=== PATIENT | female | born 1970 | race Caucasian/White ===

== ENCOUNTER → 2017-11-12 | Outpatient (CLI) | payer OTHER ==
--- NOTE | 2017-11-12 15:22 | MAMMOGRAPHY REPORT ---
BILATERAL FIRST EVER DIGITAL SCREENING MAMMOGRAM TOMOSYNTHESIS WITH CAD: 11/12/2017 CLINICAL HISTORY: Routine screening. Baseline exam. TECHNIQUE: Breast tomosynthesis in addition to standard 2D mammography was performed. Current study was also evaluated with a Computer Aided Detection (CAD) system. COMPARISON: No prior exams were available for comparison. BREAST COMPOSITION: The tissue of both breasts is heterogeneously dense, which may obscure small mas ses. FINDINGS: No suspicious masses, calcifications, or areas of architectural distortion are noted in ei ther breast. IMPRESSION: ACR BI-RADS CATEGORY 1: NEGATIVE There is no mammographic evidence of malignancy. A 1 year screening mammogram is recommended. The pa tient will receive written notification of the results. Approximately 10% of breast cancers are not detected with mammography. A negative mammographic report should not delay biopsy if a clinically suggestive mass is present. Lisset Stephen M.D. ah/:11/12/2017 14:54:53 Software Applications Specialist: Jane HOUSE(Steven)(M), [facility] letter sent: Normal 1/2 BI-RADS Code: ACR BI-RADS Category 1: Negative
== END | disposition home or self-care (01) ==
LOC: C.MAMM 09:51
PROVIDERS: ATTEND Obstetrics & Gynecology
DX: Z12.31 Encounter for screening mammogram for malignant neoplasm of breast (principal)

== ENCOUNTER → 2017-11-28 | Outpatient (CLI) | payer OTHER ==
[2017-11-28 10:01] LABS: BASO % 0.3 %; BASO ABS # 0.02 K/uL (0-0.2); EOS % 0.4 %; EOS ABS # 0.03 K/uL (0-0.5); HEMATOCRIT 41.1 % (37-47); HEMOGLOBIN 14.5 g/dL (12.0-16.0); IG# 0.01 K/uL (0.00-0.02); LYMPH % 23.8 %; LYMPH ABS # 1.84 K/uL (1.2-3.4); MEAN CELL VOLUME 87.4 fL (80-100); MEAN CORPUSCULAR HEMOGLOBIN 30.9 pg (25-34); MEAN CORPUSCULAR HGB CONC 35.3 g/dl (32-36); MONO % 4.4 %; MONO ABS # 0.34 K/uL (0.11-0.59); NEUT ABS # 5.48 K/uL (1.4-6.5); PLATELET COUNT 196 K/uL (130-400); RED CELL DISTRIBUTION WIDTH CV 12.4 % (11.5-14.5); RED CELL DISTRIBUTION WIDTH SD 40.1 fL (36.4-46.3); WHITE BLOOD COUNT 7.72 K/uL (4.8-10.8)
[2017-11-28 10:33] LABS: ALT/SGPT 19 U/L (12-78); BLOOD UREA NITROGEN 11 mg/dl (7-18); CARBON DIOXIDE 27 mmol/L (21-32); CREATININE 0.64 mg/dl (0.60-1.20); GLUCOSE 94 mg/dl (70-99); POTASSIUM 3.9 mmol/L (3.5-5.1); SODIUM 139 mmol/L (136-145)
[2017-11-28 10:44] LABS: ALKALINE PHOSPHATASE 45 U/L (45-117); AST/SGOT 12 U/L (15-37); TOTAL PROTEIN 7.4 gm/dl (6.4-8.2)
[2017-11-28 11:19] LABS: HEMOGLOBIN A1C 5.3 % (4.5-5.6)
== END | disposition home or self-care (01) ==
LOC: C.LAB1850 09:16
PROVIDERS: ATTEND Internal Medicine
DX: Z00.00 Encounter for general adult medical examination without abnormal findings (principal); Z86.32 Personal history of gestational diabetes; R42 Dizziness and giddiness; E16.2 Hypoglycemia, unspecified; E28.319 Asymptomatic premature menopause; R51 Headache; F41.9 Anxiety disorder, unspecified

== ENCOUNTER 2021-04-05 05:00 | Inpatient (IN) ==
--- NOTE | 2021-03-27 16:06 | Anesthesiology Consultation ---
Date of Service March 27, 2021 Assessment & Plan (1) Encounter for pre-operative examination: - COVID screening: Per assessment on 03/27: Travel screen negative, no known COVID-19 positive contacts or current COVID-19 related symptoms. Surgeon arranging preop COVID testing. Awaiting results. - S/P EGD/colonoscopy (for anemia evaluation): 03/15/21: MAC at [facility] > EGD with small hiatal hernia/gastris. Colonoscopy with Altered vascular, erythematous, inflamed and ulcerated mucosa in the terminal ileum. Stricture in the ascending colon. > biopsies confirmed well differentiated adenocarcinoma (reason for upcoming surgery). Chart Review Chart Review: Acceptable Risk for Surgery and Patient NOT seen in Pre Admission Testing History Surgery Operation Date: 04/05/21 11:15 Proposed Procedures p Laparoscopic Right Hemicolectomy - Joni Polo, Height/Weight Height: 5 ft 8.5 in Weight: 63.049 kg Allergies Allergy/AdvReac Type Severity Reaction Status Date / Time cefuroxime [From Ceftin] Allergy Intermediate Abdominal Verified 03/27/21 15:51 pain, rash, swelling latex Allergy Intermediate Blisters, Verified 03/27/21 15:51 sore, swollen nickel Allergy Intermediate Itching, Verified 03/27/21 15:51 chest congestion corn Allergy Mild Bloating, Verified 03/27/21 15:51 red streaks on skin, "break out", itchiness lactase [From Dairy Aid] Allergy Mild Dairy- Verified 03/27/21 15:51 bloating, red streaks on skin, "break out", itchiness wheat Allergy Mild Bloating, Verified 03/27/21 15:51 red streaks on skin, "break out", itchiness Echinacea AdvReac Mild Fast heart Verified 03/27/21 15:51 rate sulfamethoxazole AdvReac Mild Abdominal Verified 03/27/21 12:15 [From Bactrim] Pain trimethoprim [From Bactrim] AdvReac Mild Abdominal Verified 03/27/21 12:15 Pain REFINED SUGARS Allergy Intermediate Bloating, Uncoded 03/27/21 15:51 red streaks on skin, "break out", itchiness WINE Allergy Mild Itching Uncoded 03/27/21 15:51 Medications Home Medications Medication Instructions Recorded Confirmed Last Taken cetirizine [Zyrtec] 10 mg PO HS 06/25/18 03/27/21 03/13/21 progesterone micronized 100 mg 50 mg PO QAM cap 11/20/20 03/27/21 03/14/21 06:00 capsule liothyronine 5 mcg tablet 5 mcg PO UD 12/08/20 03/27/21 03/13/21 lactobacillus combination no.8 3 3,000 mmu cells PO QAM 01/03/21 03/27/21 03/13/21 billion cell capsule s-adenosylmethionine 200 mg tablet 200 mg PO QAM tab 01/03/21 03/27/21 03/13/21 inositol 325 mg tablet 325 mg PO QAM tab 01/30/21 03/27/21 03/13/21 Various Nutritional Supplement 1 dose PO UD 02/23/21 03/27/21 03/13/21 Estrogen 1 dose VAGINAL HS 03/27/21 03/27/21 Unknown Progesterone 50 mg PO QAM 03/27/21 03/27/21 Unknown Teststerone 1 dose VAGINAL HS 03/27/21 03/27/21 Unknown lorazepam 0.5 mg tablet 0.5 mg PO Q8H PRN #30 tab 03/27/21 03/27/21 Unknown Past Medical History Medical History Acid reflux Anemia current iron infusions Colon cancer Degenerative disc disease Hypothyroidism L4-L5 disc bulge 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 Lumbar radiculopathy Ocular migraine Situational anxiety TMJ (temporomandibular joint disorder) + locking and popping Past Family History Family History Father Diabetes Uncle Cancer Grandmother Diabetes Aunt Diabetes Uncle Diabetes Grandfather (Maternal) Prostate cancer Father Family history of diabetes mellitus Grandfather (Maternal) Family history of diabetes mellitus Other Hypertension Denies family history of Myocardial infarction Breast cancer Colorectal cancer Past Surgical History Surgical History Family history of reaction to anesthesia Father: "slow to wake" H/O colonoscopy (03/15/21) History of anesthesia reaction Patient had emergent D&C, total abdominal hysterectomy 08/2013 2/2 hemorrhage after /delivery. Per patient, "slow to wake" and woke up intubated post-operatively. Per [facility] anesthesia records, Grade 1 view with cricoid pressure, MAC 3, ETT 6.0 inserted tight fit at level of the cords > discharged from PACU to ICU per post-op anesthesia note. Anesthesia records to be scanned into [employer]. History of section x1 History of conization of cervix History of esophagogastroduodenoscopy (EGD) History of hysterectomy History of in vitro fertilization Used donor History of root canal procedure Nausea and vomiting after administration of anesthetic agent [place] teeth removed Social History Smoking Status: Former smoker tobacco type: cigarettes Do You Dip or Chew Tobacco: No Smoking End Date: QUIT AT AGE 41 Hx Alcohol Use: Yes Alcohol type: other alcohol intake frequency: a few times a month Alcohol Intake Frequency Comment: MACO Hx Substance Use: No substance use type: does not use Lab Results Anesthesia Preop Results Results Anesthesia Widget: WBC 4.43 K/uL (4.8-10.8) L 03/23/21 Hgb 11.0 g/dL (12.0-16.0) L 03/23/21 Hct 34.8 % (37-47) L 03/23/21 Plt 223 K/uL (130-400) 03/23/21 Na 138 mmol/L (136-145) 03/23/21 K 3.9 mmol/L (3.5-5.1) 03/23/21 Cl 106 mmol/L (98-107) 03/23/21 CO2 26 mmol/L (21-32) 03/23/21 BUN 11 mg/dl (7-18) 03/23/21 Creat 0.65 mg/dl (0.6-1.2) 03/23/21 Glucose Level 96 mg/dl (70-99) 03/23/21 Testing Electrocardiogram Date: 03/27/21 Findings: + SB @ (50) Other Testing Chest CT (03/21/21): No pneumothorax, pleural effusion, airspace consolidation or overt pulmonary edema. Small tracheocele of the right upper tracheoesophageal recess. Central airways are patent. There are no suspicious pulmonary nodules or masses identified. Mild bleb formation of the lung apices, right greater than left. No acute intrathoracic abnormality. No adenopathy or evidence of thoracic metastatic disease.
[2021-04-05] MEDS ORDERED: metroNIDAZOLE 500 MG/100 ML BAG IV SCH (06:00)
[2021-04-05] MEDS ORDERED: CIPROFLOXACIN / D5W 400 MG/200 ML BAG IV SCH (06:00)
[2021-04-05] MEDS ORDERED: LACTATED RINGER'S 1,000 ML IV SCH (06:00)
[2021-04-05] MEDS ORDERED: BUPIVACAINE/EPINEPHRINE 0.5% MPF 1:200,000 30 ML VIAL ONE (06:35)
[2021-04-05] MEDS ORDERED: MIDAZOLAM HCL 1 MG/ML 2ML VIAL ONE (06:44)
[2021-04-05] MEDS ORDERED: DEXAMETHASONE SOD INJ 4 MG/ML VIAL ONE (06:44)
[2021-04-05] MEDS ORDERED: GLYCOPYRROLATE 0.2 MG/ML VIAL ONE (06:44)
[2021-04-05] MEDS ORDERED: NEOSTIGMINE METHYLSULFATE 1 MG/ML 10ML VIAL ONE (06:44)
[2021-04-05] MEDS ORDERED: PROPOFOL IV EMULSION 10 MG/ML 20 ML VIAL IV ONE (06:44)
[2021-04-05] MEDS ORDERED: fentaNYL citrate 100 MCG/2 ML VIAL ONE ×4 (06:44→10:27)
[2021-04-05] MEDS ORDERED: LIDOCAINE 2% 2 ML VIAL/AMP(20MG/ML) INFIL ONE (06:44)
[2021-04-05] MEDS ORDERED: ONDANSETRON INJ 2 MG/ML 2 ML VIAL ONE (06:44)
[2021-04-05] MEDS ORDERED: ONDANSETRON INJ 2 MG/ML 2 ML VIAL IV PRN (06:51)
[2021-04-05] MEDS ORDERED: ATROPINE SULFATE 0.1 MG/ML 10ML SYR IV PRN (06:51)
[2021-04-05] MEDS ORDERED: HYDROmorphone INJ 1 MG/ML SYRINGE IV PRN (06:51)
[2021-04-05] MEDS ORDERED: ePHEDrine sulfate 50 MG/ML AMP IV PRN (06:51)
--- NOTE | 2021-04-05 06:58 | History & Physical Bridge Note ---
Date of Service April 05, 2021 History & Physical Bridge Note I have examined the patient, reviewed the History & Physical and in the interval since the performance of the History & Physical I have noted the following changes of clinical significance: no changes noted
[2021-04-05] MEDS ORDERED: KETOROLAC 30 MG/ML VIAL ONE (07:29)
[2021-04-05] MEDS ORDERED: ALBUMIN HUMAN 5% 12.5 GM/250 ML VIAL IV ONE (09:11)
[2021-04-05] MEDS ORDERED: ACETAMINOPHEN 1000 MG/100 ML IV IV ONE (09:16)
[2021-04-05] MEDS ORDERED: SUGAMMADEX SODIUM 200 MG/2 ML VIAL IV ONE (09:17)
[2021-04-05] MEDS: fentaNYL citrate 100 MCG/2 ML VIAL IV PRN ×2 (10:50→11:00)
[2021-04-05] MEDS ORDERED: LORazepam 0.5 MG TAB PO PRN (12:10)
[2021-04-05] MEDS ORDERED: FLUCONAZOLE 50 MG TAB PO SCH (12:10)
[2021-04-05] MEDS ORDERED: NALOXONE HCL 0.4 MG/1 ML VIAL/CARP IV PRN (12:10)
[2021-04-05] MEDS: LACTATED RINGER'S 1,000 ML IV SCH (12:17)
--- NOTE | 2021-04-05 12:23 | Anesthesiology Progress Note ---
Date of Service April 05, 2021 Anesthesia Post Procedure Vital Signs Vital Signs: Temp Pulse Pulse Resp BP BP Pulse Ox 04/05/21 11:55 97.3 F L 42 L 17 103/52 L 100 04/05/21 11:45 97.3 F L 46 L 17 98/53 L 100 04/05/21 11:35 97.3 F L 42 L 12 94/47 L 100 04/05/21 11:25 47 L 15 98/51 L 100 04/05/21 11:15 52 L 12 102/48 L 100 04/05/21 11:05 52 L 16 94/52 L 100 04/05/21 10:55 48 L 15 99/54 L 100 04/05/21 10:45 48 L 14 91/48 L 100 04/05/21 10:35 45 L 12 90/51 L 100 04/05/21 10:25 50 L 8 L 91/41 L 100 04/05/21 10:17 97.2 F L 59 L 12 92/47 L 100 04/05/21 05:33 97.9 F 62 20 125/55 L 99 Pain Intensity Abdomen: Pain Intensity: 9 Transfer of Care Handoff Completed per policy Notes Mental Status: alert / awake / arousable and participated in evaluation Patient Amnestic to Procedure: Yes Nausea / Vomiting: adequately controlled Pain: adequately controlled Airway Patency, RR, SpO2: stable & adequate BP & HR: stable & adequate Hydration State: stable & adequate Anesthetic Complications: no major complications apparent and Pt Satisfied with anesthetic care
[2021-04-05] MEDS: HYDROmorphone PCA 30 MG/30 ML IV PRN (13:31)
[2021-04-05] MEDS: SODIUM CHLORIDE 0.9% 1000ML 1,000 ML IV SCH (13:31)
[2021-04-05] MEDS: ACETAMINOPHEN 1,000 MG/100 ML VIAL IV SCH ×2 (13:56→22:27)
[2021-04-05] MEDS: metroNIDAZOLE 500 MG/100 ML BAG IV SCH ×2 (15:06→22:50)
[2021-04-05] MEDS: ONDANSETRON INJ 2 MG/ML 2 ML VIAL IV PRN (15:06)
[2021-04-05] MEDS: PROMETHAZINE HCL 25 MG in SODIUM CHLORIDE 0.9% 50 ML IV PRN (17:08)
[2021-04-05] MEDS: [UNRECOGNIZED DRUG - REMARK] SCH (17:12)
[2021-04-05] MEDS: CIPROFLOXACIN / D5W 400 MG/200 ML BAG IV SCH (17:30)
[2021-04-05] MEDS: CETIRIZINE HCL 10 MG TABLET PO SCH (22:28)
[2021-04-06] MEDS: [UNRECOGNIZED DRUG - REMARK] SCH ×4 (00:31→23:02)
[2021-04-06] MEDS: CIPROFLOXACIN / D5W 400 MG/200 ML BAG IV SCH (03:03)
[2021-04-06] MEDS: LACTATED RINGER'S 1,000 ML IV SCH ×5 (03:48→23:02)
[2021-04-06] MEDS: ACETAMINOPHEN 1,000 MG/100 ML VIAL IV SCH ×3 (05:17→21:20)
[2021-04-06] MEDS: metroNIDAZOLE 500 MG/100 ML BAG IV SCH (05:39)
[2021-04-06 07:32] LABS: Eosinophils # (auto) 0.01 K/uL (0-0.5); Eosinophils % (auto) 0.2 %; Hematocrit (blood only) 27.8 % (37-47); Hemoglobin 8.6 g/dL (12.0-16.0); Immature Granulocytes # (auto) 0.01 K/uL (0.00-0.02); Immature Granulocytes % (auto) 0.2 %; Lymphocytes # (auto) 1.17 K/uL (1.2-3.4); Lymphocytes % (auto) 18.9 %; Mean Corpuscular Hgb Conc 30.9 g/dL (32-36); Mean Corpuscular Volume 80.8 fL (80-100); Mean Platelet Volume 11.5 fL (7.4-10.4); Monocytes # (auto) 0.41 K/uL (0.11-0.59); Monocytes % (auto) 6.6 %; Neutrophils # (auto) 4.59 K/uL (1.4-6.5); Neutrophils % (auto) 74.1 %; Platelet Count 199 K/uL (130-400); RDW Coefficient of Variation 17.3 % (11.5-14.5); RDW Standard Deviation 50.7 fL (36.4-46.3); Red Blood Count 3.44 M/uL (4.2-5.4); White Blood Count 6.19 K/uL (4.8-10.8)
[2021-04-06 07:55] LABS: BUN Creatinine Ratio 12.6 (10-20); Calcium 8.2 mg/dl (8.5-10.1); Creatinine Clr Calc Pharmacy 139.4 ml/min; Est GFR (African American) 134.4 ml/min; Potassium 3.6 mmol/L (3.5-5.1)
--- NOTE | 2021-04-06 08:41 | Surgery Progress Note ---
Date of Service April 06, 2021 Assessment & Plan (1) Colon cancer: Postoperative day #1 Doing well/as expected We'll start clear liquids but I would like to go very slow with her over the weekend. DC Quiñonez catheter. Keep ASAF drain until bowel function. [facility] surgeons covering for the weekend if any questions or concerns Admission and Anticipated Discharge Date Admission Date: April 05, 2021 Subjective Patient seen. Feeling better today. Had a rough evening last evening with pain began feeling better this morning. Denying nausea. Physical Exam Physical Exam: Alert. No acute distress Abdomen with expected incisional tenderness. ASAF is serosanguineous. Results & Data ([facility]) Vital Signs (Past 12 Hours) Vital Signs Temp Pulse Pulse Resp BP BP Pulse Ox 04/06/21 07:32 36.6 C 53 L 14 100/59 L 97 04/06/21 03:21 36.8 C 54 L 14 102/60 98 04/06/21 02:14 52 L 14 97/59 L 97 04/05/21 23:55 57 L 14 91/52 L 97 04/05/21 22:31 36.7 C 53 L 15 91/48 L 95 PG Care Time/CCT Total # of Minutes Spent Total Time Spent with Patient: Total time spent is greater than 50% in coordination of care (as documented) at patient's floor/unit and/or counseling patient: Coding Level of Care Code None Diagnoses Colon cancer C18.9
[2021-04-06] MEDS ORDERED: PROGESTERONE PO SCH (09:00)
[2021-04-06] MEDS: ENOXAPARIN INJ 40 MG/0.4 ML SYR SQ SCH (11:03)
[2021-04-06] MEDS: SODIUM CHLORIDE 0.9% 1000ML 1,000 ML IV SCH ×2 (12:59→13:01)
[2021-04-06] MEDS: HYDROmorphone PCA 30 MG/30 ML IV PRN (19:22)
[2021-04-06] MEDS: CETIRIZINE HCL 10 MG TABLET PO SCH (21:20)
[2021-04-07] MEDS: ACETAMINOPHEN 1,000 MG/100 ML VIAL IV SCH ×3 (05:39→21:20)
[2021-04-07] MEDS: LACTATED RINGER'S 1,000 ML IV SCH ×3 (05:41→21:20)
[2021-04-07 06:48] LABS: Basophils # (auto) 0.02 K/uL (0-0.2); Basophils % (auto) 0.4 %; Eosinophils # (auto) 0.05 K/uL (0-0.5); Eosinophils % (auto) 0.9 %; Hematocrit (blood only) 31.2 % (37-47); Hemoglobin 9.8 g/dL (12.0-16.0); Immature Granulocytes # (auto) 0.01 K/uL (0.00-0.02); Immature Granulocytes % (auto) 0.2 %; Lymphocytes # (auto) 1.77 K/uL (1.2-3.4); Mean Corpuscular Hemoglobin 25.3 pg (25-34); Mean Corpuscular Hgb Conc 31.4 g/dL (32-36); Mean Corpuscular Volume 80.6 fL (80-100); Mean Platelet Volume 11.3 fL (7.4-10.4); Monocytes # (auto) 0.27 K/uL (0.11-0.59); Monocytes % (auto) 4.7 %; Neutrophils # (auto) 3.59 K/uL (1.4-6.5); Neutrophils % (auto) 62.8 %; Platelet Count 214 K/uL (130-400); RDW Coefficient of Variation 17.7 % (11.5-14.5); RDW Standard Deviation 51.1 fL (36.4-46.3); Red Blood Count 3.87 M/uL (4.2-5.4); White Blood Count 5.71 K/uL (4.8-10.8)
[2021-04-07 07:19] LABS: BUN Creatinine Ratio 8.2 (10-20); Calcium 8.3 mg/dl (8.5-10.1); Creatinine Clr Calc Pharmacy 139.4 ml/min; Est GFR (African American) 134.4 ml/min; Potassium 3.7 mmol/L (3.5-5.1)
[2021-04-07] MEDS: [UNRECOGNIZED DRUG - REMARK] SCH ×3 (07:38→23:57)
[2021-04-07] MEDS: ONDANSETRON INJ 2 MG/ML 2 ML VIAL IV PRN ×2 (09:13→20:33)
[2021-04-07] MEDS: ENOXAPARIN INJ 40 MG/0.4 ML SYR SQ SCH (09:13)
--- NOTE | 2021-04-07 12:16 | Surgery Progress Note ---
Date of Service F/U S/P Laparoscopic Right Hemicolectomy, Extensive Enterolysis, POD 2, pt is doing fine, passed some gas, tolerated clear diet, no fever,ASAF, 70ml/8 hours, blood color, pt denies abdominal pain, April 07, 2021 Assessment & Plan Admission and Anticipated Discharge Date Admission Date: April 05, 2021 04/07/2021 12:19PM F/U S/P Laparoscopic Right Hemicolectomy, Extensive Enterolysis, POD 2 doing fine, tolerated clear diet, keep the clear diet today, OOB will F/U Subjective Patient seen. Feeling better today. Had a rough evening last evening with pain began feeling better this morning. Denying nausea. Physical Exam Constitutional: WD/WN, vitals as above well developed and well nourished Eyes: PERRL, conjunctivae normal, anicteric sclerae Neck: trachea midline, no thyromegaly Respiratory: normal respiratory effort, lungs clear to auscultation Cardiovascular: RRR, no murmur, no edema Gastrointestinal (Abdomen): normal bowel sounds, soft, nontender, no hepatosplenomegaly Percussion/Palpation: abdomen soft no distend, the incisions intact, ASAF intact, BS + Musculoskeletal: no cyanosis or clubbing, extremities motor strength 5/5 Neurologic: awake Psychiatric: Orientation: alert and oriented x 3 Results & Data ([facility]) Vital Signs (Past 12 Hours) Vital Signs Temp Pulse Resp BP BP Pulse Ox 04/07/21 11:30 36.9 C 60 18 115/71 97 04/07/21 10:59 36.5 C 62 18 112/62 98 04/07/21 07:23 36.7 C 48 L 18 100/63 98 04/07/21 02:40 36.8 C 54 L 14 106/63 96 Laboratory Results Abnormal lab results 04/07/21 04/07/21 Range/Units 06:31 06:31 RBC 3.87 L (4.2-5.4) M/uL Hgb 9.8 L (12.0-16.0) g/dL Hct 31.2 L (37-47) % MCHC 31.4 L (32-36) g/dL RDW Std Deviation 51.1 H (36.4-46.3) fL RDW Coeff of Lobo 17.7 H (11.5-14.5) % MPV 11.3 H (7.4-10.4) fL Chloride 109 H (98-107) mmol/L Anion Gap 2.0 L (3-11) BUN 4 L (7-18) mg/dl Creatinine 0.48 L (0.6-1.2) mg/dl BUN/Creatinine Ratio 8.2 L (10-20) Calcium 8.3 L (8.5-10.1) mg/dl
[2021-04-07] MEDS: SODIUM CHLORIDE 0.9% 1000ML 1,000 ML IV SCH (12:55)
--- NOTE | 2021-04-07 16:41 | Surgery Progress Note ---
Date of Service re-check pt, pt passed 2 times BMthis afternoon, pt denies abdominal pain, some nausea, no vomting, ASAF 360ml/10 hours blod color, not whole blood, pt denies di zziness April 07, 2021 Assessment & Plan Admission and Anticipated Discharge Date Admission Date: April 05, 2021 04/07/2021 4:40PM re-check pt, pt passed BM, no abdominal pain, ASAF 360ml /10 hours, blood color, stop lovenox, SCD repeta CBC in morning, will F/U Subjective Patient seen. Feeling better today. Had a rough evening last evening with pain began feeling better this morning. Denying nausea. Physical Exam Constitutional: WD/WN, vitals as above well developed and well nourished Eyes: PERRL, conjunctivae normal, anicteric sclerae Neck: trachea midline, no thyromegaly Respiratory: normal respiratory effort, lungs clear to auscultation Cardiovascular: RRR, no murmur, no edema Gastrointestinal (Abdomen): normal bowel sounds, soft, nontender, no hepatosplenomegaly Percussion/Palpation: abdomen soft no distend, BS +, ASAF intact, incisions intact, no redness, Musculoskeletal: no cyanosis or clubbing, extremities motor strength 5/5 Neurologic: awake Psychiatric: Orientation: alert and oriented x 3 Results & Data ([facility]) Vital Signs (Past 12 Hours) Vital Signs Temp Pulse Resp BP Pulse Ox 04/07/21 15:34 36.7 C 55 L 17 109/71 99 04/07/21 11:30 36.9 C 60 18 115/71 97 04/07/21 10:59 36.5 C 62 18 112/62 98 04/07/21 07:23 36.7 C 48 L 18 100/63 98
[2021-04-07] MEDS: CETIRIZINE HCL 10 MG TABLET PO SCH (21:20)
[2021-04-08] MEDS: ACETAMINOPHEN 1,000 MG/100 ML VIAL IV SCH (05:45)
[2021-04-08] MEDS: LACTATED RINGER'S 1,000 ML IV SCH ×3 (05:45→21:47)
[2021-04-08 05:47] LABS: Basophils # (auto) 0.01 K/uL (0-0.2); Basophils % (auto) 0.2 %; Eosinophils # (auto) 0.06 K/uL (0-0.5); Eosinophils % (auto) 1.2 %; Hemoglobin 9.2 g/dL (12.0-16.0); Immature Granulocytes # (auto) 0.01 K/uL (0.00-0.02); Immature Granulocytes % (auto) 0.2 %; Lymphocytes % (auto) 22.8 %; Mean Corpuscular Hemoglobin 25.6 pg (25-34); Mean Corpuscular Hgb Conc 30.7 g/dL (32-36); Mean Corpuscular Volume 83.3 fL (80-100); Monocytes # (auto) 0.22 K/uL (0.11-0.59); Monocytes % (auto) 4.6 %; Neutrophils # (auto) 3.42 K/uL (1.4-6.5); Platelet Count 178 K/uL (130-400); RDW Coefficient of Variation 17.4 % (11.5-14.5); RDW Standard Deviation 52.9 fL (36.4-46.3); White Blood Count 4.82 K/uL (4.8-10.8)
[2021-04-08 06:19] LABS: BUN Creatinine Ratio 14.2 (10-20); Creatinine Clr Calc Pharmacy 171.5 ml/min; Est GFR (African American) 143.9 ml/min; Est GFR (Non-African American) 124.2 ml/min; Potassium 3.8 mmol/L (3.5-5.1)
[2021-04-08] MEDS ORDERED: GLUCAGON FOR INJ 1 MG VIAL IM PRN (06:30)
[2021-04-08] MEDS ORDERED: GLUCOSE 10 TABS/TUBE PO PRN (06:30)
[2021-04-08] MEDS ORDERED: DEXTROSE 50% 50 ML SYRINGE IV PRN (06:30)
[2021-04-08] MEDS ORDERED: GLUCOSE 40% GEL 15 GM TUBE PO PRN (06:30)
[2021-04-08] MEDS: CARBOHYDRATES FOR HYPOGLYCEMIA PO PRN ×2 (06:32→06:38)
[2021-04-08] MEDS: [UNRECOGNIZED DRUG - REMARK] SCH ×3 (07:13→23:34)
[2021-04-08] MEDS: ONDANSETRON INJ 2 MG/ML 2 ML VIAL IV PRN ×3 (11:46→20:02)
[2021-04-08] MEDS: SODIUM CHLORIDE 0.9% 1000ML 1,000 ML IV SCH (12:44)
--- NOTE | 2021-04-08 12:47 | Surgery Progress Note ---
Date of Service doing better, passe BM, tolerated diet, ASAF 350, less bloody, no abdominal pain, H/H stable 9.April 08, 2021 Assessment & Plan Admission and Anticipated Discharge Date Admission Date: April 05, 2021 04/08/2021 12:49PM F/U S/P Laparoscopic Right Hemicolectomy, Extensive Enterolysis, POD 3 doing fine, tolerated clear diet, advance diet, OOB will F/U Subjective Patient seen. Feeling better today. Had a rough evening last evening with pain began feeling better this morning. Denying nausea. Physical Exam Constitutional: WD/WN, vitals as above well developed and well nourished Eyes: PERRL, conjunctivae normal, anicteric sclerae Neck: trachea midline, no thyromegaly Respiratory: normal respiratory effort, lungs clear to auscultation Cardiovascular: RRR, no murmur, no edema Gastrointestinal (Abdomen): normal bowel sounds, soft, nontender, no hepatosplenomegaly Percussion/Palpation: abdomen soft all incisions intact, no redness, Musculoskeletal: no cyanosis or clubbing, extremities motor strength 5/5 Neurologic: awake Psychiatric: Orientation: alert and oriented x 3 Results & Data ([facility]) Vital Signs (Past 12 Hours) Vital Signs Temp Pulse Resp BP BP Pulse Ox 04/08/21 07:30 36.5 C 61 18 107/62 95 04/08/21 03:47 36.7 C 52 L 14 100/64 97 Laboratory Results Abnormal lab results 04/08/21 04/08/21 04/08/21 Range/Units 05:26 05:26 06:22 RBC 3.60 L (4.2-5.4) M/uL Hgb 9.2 L (12.0-16.0) g/dL Hct 30.0 L (37-47) % MCHC 30.7 L (32-36) g/dL RDW Std Deviation 52.9 H (36.4-46.3) fL RDW Coeff of Lobo 17.4 H (11.5-14.5) % MPV 11.0 H (7.4-10.4) fL Lymph # (Auto) 1.10 L (1.2-3.4) K/uL Chloride 109 H (98-107) mmol/L BUN 5 L (7-18) mg/dl Creatinine 0.39 L (0.6-1.2) mg/dl Glucose 53 L* (70-99) mg/dl POC Glucose 55 L* (70-99) mg/dl Calcium 8.0 L (8.5-10.1) mg/dl 04/08/21 Range/Units 06:37 RBC (4.2-5.4) M/uL Hgb (12.0-16.0) g/dL Hct (37-47) % MCHC (32-36) g/dL RDW Std Deviation (36.4-46.3) fL RDW Coeff of Lobo (11.5-14.5) % MPV (7.4-10.4) fL Lymph # (Auto) (1.2-3.4) K/uL Chloride (98-107) mmol/L BUN (7-18) mg/dl Creatinine (0.6-1.2) mg/dl Glucose (70-99) mg/dl POC Glucose 66 L* (70-99) mg/dl Calcium (8.5-10.1) mg/dl
[2021-04-08] MEDS: PROMETHAZINE HCL 25 MG in SODIUM CHLORIDE 0.9% 50 ML IV PRN ×2 (13:14→21:54)
[2021-04-08] MEDS ORDERED: METOCLOPRAMIDE HCL 10 MG TABLET PO PRN (14:59)
[2021-04-08] MEDS: CETIRIZINE HCL 10 MG TABLET PO SCH (20:02)
[2021-04-09] MEDS: ONDANSETRON INJ 2 MG/ML 2 ML VIAL IV PRN ×2 (00:04→17:01)
[2021-04-09] MEDS: PROMETHAZINE HCL 25 MG in SODIUM CHLORIDE 0.9% 50 ML IV PRN (02:41)
[2021-04-09] MEDS: LACTATED RINGER'S 1,000 ML IV SCH (06:13)
[2021-04-09 07:57] LABS: Basophils # (auto) 0.01 K/uL (0-0.2); Basophils % (auto) 0.2 %; Eosinophils # (auto) 0.03 K/uL (0-0.5); Eosinophils % (auto) 0.5 %; Hematocrit (blood only) 32.9 % (37-47); Hemoglobin 10.4 g/dL (12.0-16.0); Lymphocytes # (auto) 1.26 K/uL (1.2-3.4); Lymphocytes % (auto) 22.2 %; Mean Corpuscular Hemoglobin 25.2 pg (25-34); Mean Corpuscular Hgb Conc 31.6 g/dL (32-36); Mean Corpuscular Volume 79.9 fL (80-100); Monocytes # (auto) 0.31 K/uL (0.11-0.59); Monocytes % (auto) 5.5 %; Neutrophils # (auto) 4.07 K/uL (1.4-6.5); Neutrophils % (auto) 71.6 %; Platelet Count 215 K/uL (130-400); RDW Coefficient of Variation 17.6 % (11.5-14.5); RDW Standard Deviation 51.2 fL (36.4-46.3); Red Blood Count 4.12 M/uL (4.2-5.4); White Blood Count 5.68 K/uL (4.8-10.8)
[2021-04-09 08:27] LABS: BUN Creatinine Ratio 7.2 (10-20); Calcium 8.4 mg/dl (8.5-10.1); Creatinine Clr Calc Pharmacy 191.2 ml/min; Est GFR (African American) 149.2 ml/min; Est GFR (Non-African American) 128.7 ml/min
[2021-04-09] MEDS ORDERED: ACETAMINOPHEN 325 MG TAB PO PRN (11:47)
[2021-04-09] MEDS ORDERED: oxyCODONE HCL IR 5 MG TAB (IMMEDIATE RELEASE) PO PRN (11:47)
--- NOTE | 2021-04-09 11:53 | Surgery Progress Note ---
Date of Service April 09, 2021 Assessment & Plan (1) Colon cancer: doing well. will re-institue diet...start with full liquids if tolerates diet and no more nausea will try reg diet tomorrow with potential for d/c tomorrow afternoon. path pending. Admission and Anticipated Discharge Date Admission Date: April 05, 2021 Subjective pt seen. doing well today. had nausea/emesis yesterday but feels better today. minimal pain. +multiple bm's. Physical Exam Physical Exam: alert. nad abd: soft. ASAF with serosanguinous output. wounds all look good . perhaps mild distension but she states essentially back to baseline. Results & Data ([facility]) Vital Signs (Past 12 Hours) Vital Signs Temp Pulse Pulse Resp BP BP Pulse Ox 04/09/21 11:27 36.6 C 62 14 108/70 100 04/09/21 07:53 36.6 C 65 16 110/69 97 04/09/21 07:41 36.7 C 67 14 111/70 97 PG Care Time/CCT Total # of Minutes Spent Total Time Spent with Patient: Total time spent is greater than 50% in coordination of care (as documented) at patient's floor/unit and/or counseling patient: Coding Level of Care Code None Diagnoses Colon cancer C18.9
[2021-04-09] MEDS: [UNRECOGNIZED DRUG - REMARK] SCH (19:07)
[2021-04-09] MEDS: CETIRIZINE HCL 10 MG TABLET PO SCH (20:11)
[2021-04-10] MEDS: LACTATED RINGER'S 1,000 ML IV SCH ×3 (00:58→21:43)
[2021-04-10] MEDS: ONDANSETRON INJ 2 MG/ML 2 ML VIAL IV PRN (00:59)
[2021-04-10] MEDS: PROMETHAZINE HCL 25 MG in SODIUM CHLORIDE 0.9% 50 ML IV PRN ×2 (02:44→09:45)
--- NOTE | 2021-04-10 07:57 | Surgery Progress Note ---
Date of Service April 10, 2021 Assessment & Plan (1) Colon cancer: POD 5 right colectomy continue antiemetics, liquid diet as above. still with nausea. on oral exam has what appears to be florid yeast. will start diflucan. will check KUB though pt continues to have minimal distension and moving bowels. will add compazine to the regiment. not quite ready for d/c yet. keep ivf Admission and Anticipated Discharge Date Admission Date: April 05, 2021 Subjective persistent nausea, small emesis, getting zofran and phenergan Physical Exam Gastrointestinal (Abdomen): Inspection/Auscultation: + abdominal surgical incision (dry); abdomen not distended Percussion/Palpation: abdomen soft Results & Data ([facility]) Vital Signs (Past 12 Hours) Vital Signs Temp Pulse Resp BP Pulse Ox 04/10/21 07:48 36.9 C 71 18 126/84 99 04/09/21 22:47 36.8 C 69 18 120/76 96 PG Care Time/CCT Total # of Minutes Spent Total Time Spent with Patient: Total time spent is greater than 50% in coordination of care (as documented) at patient's floor/unit and/or counseling patient: Coding Level of Care Code None Diagnoses Colon cancer C18.9
[2021-04-10] MEDS: PROGESTERONE PO SCH (09:46)
[2021-04-10] MEDS ORDERED: FLUCONAZOLE 200 MG/100 ML BAG IV ONE (10:43)
--- NOTE | 2021-04-10 12:47 | Operative Report ---
PG Post Operative Report Pre & Post Diagnosis Operation Date: 04/05/21 07:00 Pre-Op Diagnosis: Colon Cancer Post-Op Diagnosis: Colon Cancer; adhesions I identified the patient and participated in the time-out.: Yes Procedure Operation Date: 04/05/21 07:00 Actual Procedures p Laparoscopic Right Hemicolectomy, Extensive Enterolysis (Right) - Joni Polo DO Surgeon Joni Polo DO [employer] Installer angel Hannah Estimated Blood Loss 50 Findings Consistent with Post-Op Diagnosis Specimens terminal ileum, right colon, portion of transverse colon. Description of Procedure After informed consent was obtained the patient was taken to the operating room and placed in supine position. After successful intubation a Quiñonez catheter was placed and the abdomen was sterilely prepped and draped in usual fashion. We began with a periumbilical incision with an 11 blade scalpel. This was carried down through the soft tissue using cautery. The anterior rectus fascia was opened using cautery and two #0 Vicryl stay sutures were placed. Peritoneum was entered using blunt finger penetration and a finger sweep was performed. A 12 mm Kay trocar was placed and the abdomen was insufflated to 18 mmHg. The laparoscope was inserted and the abdomen examined in 360 degrees. Surprisingly there was extensive adhesions in the lower half of the abdomen presumably from her prior emergency hysterectomy following childbirth. It was clear I would have to free these up as they involved distal ileum. About the first 45 minutes of the procedure were spent tediously taking down these adhesions using traction countertraction blunt dissection small amounts of scissor lysis and small amount of usage of the harmonic scalpel. They were almost entirely involving distal small bowel. I was able to do this through a left lower quadrant 12 mm trocar that was placed a right upper quadrant 5 mm trocar that was placed and then ev entually we were able to place a suprapubic 5 mm trocar. After taking down all the adhesions we were then able to mobilize the cecum and right colon along the white line of Toldt using blunt dissection and again small amounts of harmonic scalpel. We were able to identify the tattoo placed by gastroenterology. This was just proximal to the hepatic flexure. I was able to continue the right colon around the hepatic flexure and over to the distal transverse colon. I transected the small bowel several inches from the ileocecal valve using a REFUGIO brown cartridge linear stapler. We were also able to separate the omentum from the transverse colon. I was able to locate the middle colic vessels and we made a window in the mesentery at this point. We took down the mesentery of the proximal transverse colon hepatic flexure right colon and cecum and terminal ileum using the harmonic scalpel. We tried to stay as low as possible to incorporate as many lymph nodes as possible. We are then able to extend her upper abdominal incision medially and open the fascia and deliver the bowel out through this after protecting it with packing towels. We used a REFUGIO linear stapler to transect the colon proximal to the middle colic vessels. After doing this we were also able to deliver the stapled end of small bowel out through the same incision. We performed a [id number] incision using a REFUGIO brown cartridge linear stapler. The common enterotomy was closed using a TA 60 stapling device. 3-[address] to [address] a crotch stitch as well as to oversew the staple lines in Lembert fashion. Anastomosis was intact and appeared to have good blood flow. It was dunked back into the abdominal cavity. Before closing the fascia we reinsufflated the abdomen and reinserted the laparoscope. When I looked at the anastomosis I did not like how it was laying. It was in a twisted fashion and I decided to redo the anastomosis. We redelivered the anastomosis out through the same incision. I was able to staple off the small bowel side as well as the colonic side while still keeping the middle colic vessels intact. After resecting the anastomosis we redid the [id number] anastomosis again using a REFUGIO brown cartridge linear stapler. Again we used 3-0 silk for a crotch stitch and oversewed the staple lines in Lembert fashion. We closed the mesenteric defect using 2-0 Vicryl in a running fashion. Again we dunked this back into the abdominal cavity. This time we closed the fascia using 0 PDS in running fashion. I should note that after each anastomosis we did change our gloves. We reinsufflated the abdomen and this time when we looked I was quite happy with the anastomosis. It did not appear twisted and had good blood flow. We thoroughly irrigated the upper abdomen and right side of the abdomen. There was adequate hemostasis. We placed a 10 flat Jensen-Millan drain in the right upper quadrant and brought out through one of the trocar sites and secured to the skin using 0 Vicryl. Throughout the procedure I did not see any pathologic looking lymph nodes. There was no peritoneal abnormalities or liver abnormalities. Other than the adhesions her anatomy was essentially normal. At this point we removed all the trochars and desufflated the abdomen. The fascia of the camera port was closed using 0 Vicryl in [id number] fashion. The wounds were all closed. The larger incision was closed using 3-0 Vicryl and 4-0 Monocryl. Dermabond glue and Steri-Strips were placed. The other incisions were closed using 4-0 Monocryl and Dermabond glue. Patient was awakened extubated and transferred recovery in stable condition. My physician technical staff assistant was present for the entire case. He was instrumental in running the camera as well as assisting with all aspects of the procedure including the anastomosis wound closure and dressing placement. I attest to the content of the Intraoperative Record and any orders documented therein. Any exceptions are noted below.
--- NOTE | 2021-04-10 12:58 | XRay Report ---
KUB CLINICAL HISTORY: nausea s/p R hemicolectomy COMPARISON STUDY: CT of the abdomen and pelvis March 21, 2021. FINDINGS: Right lower quadrant surgical drain is in place. Locules of gas project over the flanks. Th is is probably within the abdominal wall and likely postsurgical. Staple lines within the right lower quadrant are noted. There are multiple loops of dilated small bowel measure up to 4.5 cm in caliber. IMPRESSION: 1. Several loops of mildly dilated small bowel. The radiographic appearance favors a developing small bowel obstruction however a postoperative ileus could appear similar. 2. Multiple locules of gas projecting over the flanks, likely reflecting gas within the abdominal wal l. This is nonspecific but likely postsurgical. ACT 112: Negative or not required by law. Electronically signed by: Keny Yoo M.D. 04/10/2021 12:56 PM
[2021-04-10] MEDS: PROCHLORPERAZINE 5 MG in SYRINGE 4 ML IV PRN ×2 (15:24→21:35)
[2021-04-10] MEDS: CETIRIZINE HCL 10 MG TABLET PO SCH (21:06)
--- NOTE | 2021-04-11 08:23 | Surgery Progress Note ---
Date of Service April 11, 2021 Assessment & Plan (1) Colon cancer: POD#6 right colectomy will obtain KUB this AM for recent bout of emesis on exam abdomen is soft, non tender continue diflucan for now for oral yeast Continue on liquids for now as above. feeling well today. currently no pain or nausea. wants to go home. KUB still showing some dilated loops. keep one more night...hopeful d/c tomorrow am. discussed path report with her and her . Admission and Anticipated Discharge Date Admission Date: April 05, 2021 Subjective Patient says she is feeling well this AM. She did have an episode of large emesis around 3AM this morning and said she immediately felt better afterwards. She denies much flatus, but says she is having BM's, last one was last night. Physical Exam Physical Exam: awake/alert Constitutional: no acute distress Gastrointestinal (Abdomen): Percussion/Palpation: abdomen soft; abdomen nontender ASAF dark serosang output. Results & Data ([facility]) Vital Signs (Past 12 Hours) Vital Signs Temp Pulse Resp BP Pulse Ox 04/11/21 07:58 36.3 C L 107 H 18 119/86 98 04/10/21 22:43 36.7 C 70 17 117/74 98 PG Care Time/CCT Total # of Minutes Spent Total Time Spent with Patient: Total time spent is greater than 50% in coordination of care (as documented) at patient's floor/unit and/or counseling patient: Coding Level of Care Code None Diagnoses Colon cancer C18.9
--- NOTE | 2021-04-11 08:34 | XRay Report ---
KUB HISTORY: nausea/vomiting post op COMPARISON: KUB 04/10/2021. FINDINGS: Persistent dilatation of the small bowel within left side the abdomen measuring up to 4.4 c m in diameter. Mall amount of gas is seen within the colon. There are suture material and a surgical drain within the right side the abdomen consistent with the recent right hemicolectomy. Subcutaneous emphysema within the abdominal wall persists. The lung bases appear clear. No renal calculi. No uret eral calculi. No pneumoperitoneum or pneumatosis. IMPRESSION: 1. No change in the dilated loops of small bowel within the left side of the abdomen. Given the recen t postoperative changes, this favors an ileus. A partial small bowel obstruction could also have a si milar appearance. 2. Abdominal wall gas/subcutaneous emphysema persists. ACT 112: Negative or not required by law. Electronically signed by: Kip Galvin M.D. 04/11/2021 8:33 AM
[2021-04-11] MEDS: LACTATED RINGER'S 1,000 ML IV SCH (10:40)
[2021-04-11] MEDS: FLUCONAZOLE 100 MG/50 ML BAG IV SCH (10:40)
[2021-04-11] MEDS: PROGESTERONE PO SCH (10:41)
[2021-04-11] MEDS: CETIRIZINE HCL 10 MG TABLET PO SCH (20:20)
[2021-04-12] MEDS: FLUCONAZOLE 100 MG/50 ML BAG IV SCH (08:43)
[2021-04-12] MEDS: PROGESTERONE PO SCH (08:43)
--- NOTE | 2021-04-12 09:23 | Surgery Progress Note ---
Date of Service April 12, 2021 Assessment & Plan (1) Colon cancer: POD#7 right colectomy No further nausea/vomiting, pt having + BM's ASAF 70cc overnight, 100cc this AM, dark serosang drainage...will remove today Complete course of diflucan...can add magic mouthwash for oral thrush Elevate L arm as possible for concern for recently infiltrated IV Follow up with Dr. Polo in 1-2 weeks as above. pt seen. feeling well. marcelo diet. no nausea past 24 hours. +another bm. no pain. will d/c ASAF drain and d/c home today. instructions given. f/u 1 week. Admission and Anticipated Discharge Date Admission Date: April 05, 2021 Subjective Patient says physically she had a good night, but there was a lot of outside commotion that kept her up. She denies any further nausea/vomiting. She is passing BM's. Not too much flatus. Pt has some swelling/mild erythema of L antecubital area where recent IV was. Physical Exam Physical Exam: awake/alert ENMT: + thrush Gastrointestinal (Abdomen): Percussion/Palpation: abdomen soft ASAF 70cc overnight, 100cc this AM. dark serosang. Skin: some mild swelling and erythema of L antecubital area where recent IV was Results & Data ([facility]) Vital Signs (Past 12 Hours) Vital Signs Temp Pulse Resp BP BP Pulse Ox 04/12/21 07:48 36.8 C 90 16 116/73 97 04/11/21 22:55 36.7 C 83 16 114/76 100 PG Care Time/CCT Total # of Minutes Spent Total Time Spent with Patient: Total time spent is greater than 50% in coordination of care (as documented) at patient's floor/unit and/or counseling patient: Coding Level of Care Code None Diagnoses Colon cancer C18.9
--- NOTE | 2021-04-13 08:59 | Discharge Summary ---
Date of Service April 13, 2021 Principal Diagnosis Colon cancer Discharge Exam Constitutional WD/WN, vitals as above Gastrointestinal (Abdomen) Inspection/Auscultation: + abdominal surgical incision (clean, dry); abdomen not distended Percussion/Palpation: abdomen soft Discharge Data Allergies Allergy/AdvReac Type Severity Reaction Status Date / Time cefuroxime [From Ceftin] Allergy Intermediate Abdominal Verified 04/05/21 05:44 pain, rash, swelling latex Allergy Intermediate Blisters, Verified 04/05/21 05:44 sore, swollen nickel Allergy Intermediate Itching, Verified 04/05/21 05:44 chest congestion corn Allergy Mild Bloating, Verified 04/05/21 05:44 red streaks on skin, "break out", itchiness lactase [From Dairy Aid] Allergy Mild Dairy- Verified 04/05/21 05:44 bloating, red streaks on skin, "break out", itchiness wheat Allergy Mild Bloating, Verified 04/05/21 05:44 red streaks on skin, "break out", itchiness corn syrup Allergy Verified 04/05/21 15:00 lactose Allergy Verified 04/05/21 15:00 maltodextrin Allergy Verified 04/05/21 15:00 soy Allergy Verified 04/05/21 15:00 sucrose Allergy Verified 04/05/21 15:00 Echinacea AdvReac Mild Fast heart Verified 04/05/21 05:44 rate sulfamethoxazole AdvReac Mild Abdominal Verified 04/05/21 05:44 [From Bactrim] Pain trimethoprim [From Bactrim] AdvReac Mild Abdominal Verified 04/05/21 05:44 Pain REFINED SUGARS Allergy Intermediate Bloating, Uncoded 04/05/21 05:44 red streaks on skin, "break out", itchiness WINE Allergy Mild Itching Uncoded 04/05/21 05:44 Procedures Performed Operation Date: 04/05/21 07:00 Actual Procedures p Laparoscopic Right Hemicolectomy, Extensive Enterolysis (Right) - Joni Polo, [place] [facility] (1) Colon cancer: 50 y/o female with carcinoma of ascending colon was taken to the operating room for laparoscopic right hemicolectomy and transferred to the surgical floor. Quiñonez was removed on POD 1 and she was started on clear liquids. By the next day she was having loose BMs. Although still on a liquid diet she was having some nausea on POD3 and diet was held. She was improved by the next morning and full liquids were resumed. This pattern of afternoon/evening nausea continued over the next few days. KUB showed a few loops of dilated small bowel but she was continuing to have bowel movements and increasing flatus. By POD 6 she was feeling better and wishing to return home where she has more control of her diet. On POD 7 ASAF drain was removed and she was stable for discharge home. Total Time Total Time Spent Total Time Spent (In Minutes): 15 Discharge Plan Discharge Items Patient Disposition: Home - Self-Care Reason For Visit: Colon Cancer Discharge Diagnosis: Right hemicolectomy Activity: Per Instructions section Lifting: No more than 10 pounds Bathing Comment: may shower; no soaking in tubs/pools Exercise/Sports: Wait until after follow-up appointment Driving/Machine Use: no driving while taking narcotics for pain Non-emergency contact: Surgeon Call non-emergency contact if: you have any medication questions, your symptoms worsen, your pain is not controlled, your pain is worsening, your pain is concerning for you, you have a fever, your temperature is above 101.5, your wound has increased redness, your wound has increased drainage and your wound pain has increased Follow-up/Referrals: Joni Polo DO [Surgeon] - (Please call to schedule follow up in clinic within 1-2 weeks) David Avina DO [Primary Care Provider] - 04/19/21 11:30 am Diet: Regular Addtl Attending Provider Instructions: You may change the dressing where your surgical drain was daily until healed and no longer draining. Cover with dry 4x4 gauze and adhere medipore tape. Keep your left arm elevated as able to help with swelling in the area your recent IV was located. You may use a warm compress to help with symptoms. Pending Studies at Discharge: Yes Studies:: surgical pathology Stand-Alone Forms: My [facility], Smoking Cessation Medications and DC Order Prescriptions: New hydrocodone-acetaminophen 5-325 mg tablet 1 - 2 tab PO .q4h- q6h PRN (Reason: pain, for initial therapy, max 6 tabs per day ) Qty: 15 RF: 0 prochlorperazine maleate [Compazine] 5 mg tablet 5 mg PO Q8H PRN (Reason: nausea and vomiting) 2 Days Qty: 10 RF: 0 fluconazole [Diflucan] 100 mg tablet 100 mg PO DAILY 4 Days Qty: 4 RF: 0 Continued progesterone micronized 100 mg capsule 50 mg PO QAM RF: 0 liothyronine 5 mcg tablet 5 mcg PO UD RF: 0 Adult Probiotic 3 billion cell capsule 3,000 mmu cells PO QAM RF: 0 Artis-E 200 mg tablet 200 mg PO QAM RF: 0 inositol 325 mg tablet 325 mg PO QAM RF: 0 lorazepam [Ativan] 0.5 mg tablet 0.5 mg PO Q8H PRN (Reason: anxiety) Qty: 30 RF: 1 morinda citrifolia fruit 250 mg capsule 500 mg PO DAILY RF: 0 cetirizine [Zyrtec] 10 mg Tablet 10 mg PO HS RF: 0 Various Nutritional Supplement 1 dose PO UD RF: 0 Progesterone 50 mg PO QAM RF: 0 Teststerone 1 dose vaginal HS RF: 0 Estrogen 1 dose vaginal HS RF: 0 Discontinued fluconazole [Diflucan] 150 mg tablet 150 mg PO Q3D Qty: 2 RF: 0 Discharge Orders: Discharge Order (Routine); Ordered 04/12/21 Ordered By: Lesli West Admission Data Admit Date/Time: 04/05/21 10:25 Attending Provider: Joni Polo Admit Provider: Joni Polo Primary Care Provider: David Avina Other Interventions: Discharge Summary Assessment (RN) Last Done: 04/12/21 10:42 Coding Level of Care Code D/C Day Management <30 mins Diagnoses Colon cancer C18.9
--- NOTE | 2021-05-01 14:33 | Coding Query ---
Your help is needed for correct coding of this account; please clarify if the patients Post-operative Ileus was: ( x ) expected out of the surgery ( ) unexpected complication from the surgery ( )other please specify Thank you Manisha MARIA
== END 2021-04-12 11:28 | disposition home or self-care (01) | DRG 330 ==
LOC: ASU 05:00 → 3W 10:25